=== PATIENT | female | born 1990 | race African-American/Black ===

== ENCOUNTER 2017-01-11 11:02 | Inpatient (IN) | payer MEDICARE, MEDICAID ==
[~2017-01-11] VITALS: Ht 144.8 cm; Wt 277.7 kg
[2017-01-11 13:00] LABS: BASOPHILS 0.5 % (0-2); EOSINOPHILS 7.5 % (0-7); HEMATOCRIT 43.6 % (36.0-48.0); HEMOGLOBIN 13.6 g/dL (12-16); IMMATURE GRANULOCYTES 0.2 % (0-5); LYMPHOCYTES 11.9 % (15-50); MCH 28.5 pg (26.0-34.0); MCHC 31.2 g/dL (31.0-37.0); MCV 91.4 fL (80.0-100.0); MEAN PLATELET VOLUME 10.4 fL (7.4-10.4); MONOCYTES 8.4 % (2-11); NEUTROPHILS 71.5 % (40-80); PLATELET COUNT 205 10x3/uL (130-400); RBC 4.77 10x6/uL (4.00-5.40); RDW 19.1 % (11.5-14.5); WBC 6.4 10x3/uL (4.8-10.8)
[2017-01-11 13:36] LABS: ALBUMIN 3.5 g/dL (3.4-5.0); ALKALINE PHOSPHATASE 152 U/L (46-116); ALT (SGPT) 22 U/L (10-68); BILIRUBIN - TOTAL 1.57 mg/dL (0.2-1.3); CALC OSMOLALITY 277 mosm/kg (275-300); CALCIUM 9.2 mg/dL (8.5-10.1); CARBON DIOXIDE 29.2 mmol/L (21.0-32.0); CHLORIDE - SERUM 104 mmol/L (98-107); CREATININE - SERUM 0.7 mg/dL (0.6-1.3); GLUCOSE 85 mg/dL (74-106); POTASSIUM - SERUM 4.3 mmol/L (3.5-5.1); PROTEIN - SERUM 8.7 g/dL (6.4-8.2); SODIUM 140 mmol/L (136-145); UREA NITROGEN 12 mg/dL (7-18); eGFR NON AFRICAN AMERICAN > 90 mL/min (90-120)
[2017-01-11 13:59] LABS: PRO BNP 779 pg/mL (0-125); THYROID STIMULATING HORMONE 3.03 uIU/mL (0.36-3.74)
[2017-01-11 16:37] LABS: CREATINE KINASE 48 UL (21-215)
[2017-01-11 16:38] LABS: TROPONIN-I < 0.017 ng/mL (0.000-0.060)
--- NOTE | 2017-01-11 18:53 | NUR ---
PT RECIEVED FROM ER. GALLEGOS PLACED AND LASIX 80MG IV TO RIGHT AC. DENIES ANY NEEDS. SR UP WITH CALL LIGHT IN REACH
--- NOTE | 2017-01-11 19:00 | NUR ---
INITIAL ROUNDS MADE. PT SITTING UP IN BED WITH FAMILY IN ROOM. PT REQUESTING AND GIVEN SANDWICH TRAY, PUDDING, JELLO AND JUICE. CALL LIGHT IN REACH. WILL CONT TO MONITOR.
[2017-01-11 19:47] LABS: CREATINE KINASE 41 UL (21-215)
[2017-01-11 19:48] LABS: TROPONIN-I < 0.017 ng/mL (0.000-0.060)
[2017-01-11 21:02] VITALS: BP 142/84; Ht 144.8 cm; Wt 277.7 kg
[2017-01-11 21:21] VITALS: BP 142/84
[2017-01-11] MEDS ORDERED: COREG6.25 MG PO (22:08)
[2017-01-11] MEDS ORDERED: CYMBALTA30 MG PO (22:08)
[2017-01-11] MEDS ORDERED: ZESTRIL40 MG PO (22:08)
[2017-01-11] MEDS ORDERED: BUPROPION HCL100 MG PO (22:08)
[2017-01-11] MEDS ORDERED: NORVASC10 MG PO (22:09)
[2017-01-11] MEDS ORDERED: SYNTHROID50 MCG PO (22:09)
[2017-01-11] MEDS ORDERED: LASIX80 MG PO (22:09)
[2017-01-11] MEDS ORDERED: ALDACTONE100 MG PO (22:10)
[2017-01-12 01:17] LABS: CREATINE KINASE 41 UL (21-215); TROPONIN-I < 0.017 ng/mL (0.000-0.060)
[2017-01-12 01:26] VITALS: BP 137/93
--- NOTE | 2017-01-12 03:59 | NUR ---
CREW CALLER AT BEDSIDE FOR VS. NEEDS ADDRESSED AT THIS TIME. CALL LIGHT IN REACH. WILL CONT TO MONITOR.
[2017-01-12 04:59] VITALS: BP 139/82
[2017-01-12 06:14] LABS: BASOPHILS 0.4 % (0-2); EOSINOPHILS 8.7 % (0-7); HEMATOCRIT 42.2 % (36.0-48.0); HEMOGLOBIN 12.9 g/dL (12-16); IMMATURE GRANULOCYTES 0.2 % (0-5); LYMPHOCYTES 15.1 % (15-50); MCH 28.2 pg (26.0-34.0); MCHC 30.6 g/dL (31.0-37.0); MCV 92.1 fL (80.0-100.0); MEAN PLATELET VOLUME 10.5 fL (7.4-10.4); MONOCYTES 9.5 % (2-11); NEUTROPHILS 66.1 % (40-80); PLATELET COUNT 216 10x3/uL (130-400); RBC 4.58 10x6/uL (4.00-5.40); RDW 18.9 % (11.5-14.5); WBC 5.5 10x3/uL (4.8-10.8)
[2017-01-12 06:35] LABS: ALBUMIN 3.3 g/dL (3.4-5.0); ALKALINE PHOSPHATASE 148 U/L (46-116); ALT (SGPT) 21 U/L (10-68); BILIRUBIN - TOTAL 1.45 mg/dL (0.2-1.3); CALC OSMOLALITY 276 mosm/kg (275-300); CALCIUM 8.7 mg/dL (8.5-10.1); CARBON DIOXIDE 29.9 mmol/L (21.0-32.0); CHLORIDE - SERUM 102 mmol/L (98-107); CREATININE - SERUM 0.8 mg/dL (0.6-1.3); GLUCOSE 95 mg/dL (74-106); POTASSIUM - SERUM 3.8 mmol/L (3.5-5.1); PROTEIN - SERUM 8.3 g/dL (6.4-8.2); SODIUM 139 mmol/L (136-145); UREA NITROGEN 11 mg/dL (7-18); eGFR NON AFRICAN AMERICAN > 90 mL/min (90-120)
[2017-01-12 08:00] VITALS: BP 156/93
--- NOTE | 2017-01-12 09:14 | NUR ---
TELEMETRY CAF. HR 96. URINE SPECIMEN COLLECTED AND TAKEN TO LAB FOR UA. WILL MONITOR.
[2017-01-12 09:15] LABS: APPEARANCE HAZY (CLEAR); BACTERIA FEW /hpf (NONE SEEN); BILIRUBIN NEGATIVE (NEGATIVE); COLOR YELLOW (YELLOW); EPITHELIAL CELLS 0-5 /hpf (0-5); GLUCOSE NEGATIVE (NEGATIVE); KETONE NEGATIVE (NEGATIVE); LEUKOCYTE ESTERASE TRACE (NEGATIVE); MUCUS <1+ /lpf (NONE SEEN); NITRITE NEGATIVE (NEGATIVE); PROTEIN TRACE mg/dL (NEGATIVE); SPECIFIC GRAVITY 1.015 (1.005-1.020); UROBILINOGEN NORMAL (NORMAL); WHITE CELLS - URINE 0-5 /hpf (0-5)
[2017-01-12 12:03] VITALS: BP 119/77
--- NOTE | 2017-01-12 14:45 | NUR ---
OT NOTE: ATTEMPTED EVAL BUT PT REPORTED SEVERE CHEST PAIN AND WAS UNABLE TO PARTICIPATE. WILL ATTEMPT AGAIN TOMORROW
[2017-01-12 16:00] VITALS: BP 142/90
--- NOTE | 2017-01-12 16:26 | NUR ---
COMPLETE BED BATH GIVEN. REFUSES PT TWICE TODAY. STATES SHE WILL WALK TOMARROW AM. WILL CONT. TO MONITR NEEDS.
--- NOTE | 2017-01-12 16:46 | NUR ---
Patient Name: JOSE MANCUSO Admission Status: ER Accout number: [id number] Admission Date: 01-11-2017 : 1990 Admission Diagnosis: Attending: MITCH Current LOS: 1 Anticipated DC Date: 01-14-2017 Planned Disposition: Home with Home Health Primary Insurance: MEDICARE A & B PLANNED EXTERNAL PROVIDER: [facility] Discharge Planning Comments: * Is the patient Alert and Oriented? Yes 0 * How many steps to enter\\exit or inside your home? NONE 0 * PCP DR. HATCH IN [place] 0 * Pharmacy [facility] IN [place] 0 * Preadmission Environment Home with Family 0 * ADLs Partial Dependent 0 * Partial ADLs (Assistance needed) Dressing Toileting 0 * Equipment CPAP Nebulizer Oxygen Shower Chair Walker Wheelchair 0 * Other Equipment HOME OXYGEN ONLY MEDICAL EQUIPMENT PROVIDER - [place] [facility] PAT[facility] 0 * List name and contact numbers for known caregivers / representatives who currently or will assist patient after discharge: WESLY CASTRO, COUSIN, SHRUTHI - CAREGIVER 0 * Community resources currently utilized [employer] Private Duty Care 0 * Please name any agencies selected above. [employer] DELIVERY 43 HOURS PAID CAREGIVER EVERY 2 WEEKS - CAREGIVER IF LIVE IN FRIEND 0 * Additional services required to return to the preadmission environment? No * Can the patient safely return to the preadmission environment? Yes 0 * Has this patient been hospitalized within the prior 30 days at any hospital? No 0 CM RECIEVED ORDER TO EVALUATE FOR HOME ASSISTANCE NEEDS. CM MET WITH PT AND CAREGIVER, SHRUTHI, IN ROOM TO DISCUSS DISCHARGE PLANNING AND NEEDS. PT REPORTS LIVING AT HOME INDEPENDENTLY WITH HER 16 YEAR OLD DAUGHTER. PT HAS WALKER, WHEELCHAIR, NEBULIZER AND OXYGEN AT HOME, PROVIDER IS [place] PAT[place]. PT HAS 43 HOURS OF PERSONAL CARE EVERY TWO WEEKS PROVIDED BY PT'S FRIEND, SHRUTHI, WHO LIVES WITH HER AND ASSISTS PT IN BATHROOM, WITH DRESSING AND COOKS FOR PT. CM DISCUSSED AVAILABILITY OF HOME HEALTH, REHAB SERVICES AND MEDICAL EQUIPMENT. PT HAS HAD HOME HEALTH AND WOULD LIKE [facility] TO GET HER LEGS WORKING AGAIN. HOME HEALTH CHOICE SIGNED. PT REPORTS SHE NEEDS A NEW HOSE FOR HER CPAP; PT REPORTS HER AUNT WILL PICK HER UP FOR DISCHARGE HOME OR SHE MAY JUST TAKE THE AMBULANCE. CM EXPLAINED THAT PT IS ABLE TO TRANSFER OUT OF BED TO A CHAIR AND IS ABLE TO WALK, SO SHE WILL NOT QUALIFY, TO CM'S KNOWLEDGE FOR AMBULANCE TRANSPORT HOME. PT REPORTS THE HOSPITALS USUALLY SEND HER HOME BY AMBULANCE. CM CALLED [facility] [place] [facility], , SPOKE TO JEFF, WHO WILL HAVE BRIAN CONTACT PATIENT TO SEE WHAT CAN BE DONE TO REPAIR THE CPAP MACHINE WHILE PT IS IN THE HOSPITAL. PT PLANS TO DISCHARGE HOME, WANTS [facility] FOR PHYSICAL THERAPY SERVICES TO "GET HER LEGS WORKING AGAIN". CM TO ARRANGE HOME HEALTH WITH PHYSICIAN AGREEMENT AND ORDERS. Rodding Anode Worker: Jose Melendez
[2017-01-12 19:00] VITALS: BP 124/81
--- NOTE | 2017-01-12 19:16 | NUR ---
RESUMED CARE OF PT, LYING IN BED RESPIRATIONS EVEN AND UNLABORED ON 3LPM VIA NC. 88 SR WITH FIRST DEGREE AVB. GALLEGOS TO GRAVITY, CALL LIGHT IN REACH. RIGHT AC SALINE LOCKED. REQUESTS PAIN MEDICATION. SEE NURSE ASSESSMENT.
[2017-01-13] VITALS: BP 126/78
--- NOTE | 2017-01-13 01:02 | NUR ---
LYING IN BED WITH EYES CLOSED, CALL LIGHT IN REACH. WILL CONTINUE TO MONITOR.
--- NOTE | 2017-01-13 03:37 | NUR ---
HORSE GROOMER AT BEDSIDE TO OBTAIN VITALS, WILL CONTINUE WITH PLAN OF CARE.
[2017-01-13 04:00] VITALS: BP 136/78
[2017-01-13 05:48] LABS: BASOPHILS 0.4 % (0-2); EOSINOPHILS 9.1 % (0-7); HEMATOCRIT 42.2 % (36.0-48.0); IMMATURE GRANULOCYTES 0.2 % (0-5); LYMPHOCYTES 16.4 % (15-50); MCH 28.3 pg (26.0-34.0); MCHC 30.8 g/dL (31.0-37.0); MCV 91.7 fL (80.0-100.0); MEAN PLATELET VOLUME 10.7 fL (7.4-10.4); MONOCYTES 8.9 % (2-11); PLATELET COUNT 209 10x3/uL (130-400); RDW 18.9 % (11.5-14.5); WBC 5.5 10x3/uL (4.8-10.8)
[2017-01-13 06:18] LABS: ALBUMIN 3.1 g/dL (3.4-5.0); ALKALINE PHOSPHATASE 139 U/L (46-116); ALT (SGPT) 21 U/L (10-68); CALC OSMOLALITY 274 mosm/kg (275-300); CALCIUM 8.5 mg/dL (8.5-10.1); CARBON DIOXIDE 32.8 mmol/L (21.0-32.0); CHLORIDE - SERUM 100 mmol/L (98-107); CREATININE - SERUM 0.9 mg/dL (0.6-1.3); GLUCOSE 110 mg/dL (74-106); POTASSIUM - SERUM 3.6 mmol/L (3.5-5.1); PROTEIN - SERUM 8.5 g/dL (6.4-8.2); SODIUM 137 mmol/L (136-145); UREA NITROGEN 13 mg/dL (7-18); eGFR NON AFRICAN AMERICAN 80 mL/min (90-120)
--- NOTE | 2017-01-13 06:32 | NUR ---
NO CHANGES FROM PREVIOUS ASSESSMENT, CALL LIGHT IN REACH.
[2017-01-13 08:00] VITALS: BP 135/73
--- NOTE | 2017-01-13 10:36 | NUR ---
UP OOB WITH PT ASSIST.
[2017-01-13 12:00] VITALS: BP 135/78; BP 140/75
--- NOTE | 2017-01-13 15:06 | NUR ---
Patient Name: JOSE MANCUSO Encounter No: [id number] : 1990 Primary Insurance: MEDICARE A & B Anticipated DC Date: 01-14-2017 Planned Disposition: Home with Home Health External Planned Provider: [facility] DCP follow-up note: CM RECEIVED DISCHARGE AND HOME HEALTH ORDER, CALLED [facility], , SPOKE TO STEFFANIE AND PROVIDED REFERRAL INFORMATION, WILL ADMIT ON TUESDAY. CM FAXED REFERRAL TO [facility] AT [phone]. CM SPOKE TO [facility]STOPHER [facility]ANG [facility] PATIENT AT [employer] [facility] WHO HAS PROVIDED PT WITH REPLACEMENT CPAP HOSE. CM MET WITH PT AND CAREGIVER IN ROOM, DISCUSSED DISCHARGE TO HOME HEALTH FOR ADMIT ON TUESDAY, PT IN AGREEMENT WITH HOME HEALTH ADMIT ON TUESDAY. CM EXPLAINED THAT HOME HEALTH WILL CALL AND THEN COME OUT ON TUESDAY FOR ADMISSION. PT REPORTS HER AUNT WILL PICK HER UP OR SHE WILL HAVE TO WORK SOMETHING ELSE OUT. SALES REPRESENTATIVE [employer] NOTIFIED. Jose Melendez, CASE MANAGEMENT
--- NOTE | 2017-01-13 15:11 | NUR ---
PT REQUESTING NARCOTIC PAIN MEDICATION FOR DISCHARGE FOR BACK PAIN. SPOKE WITH MELITA/MADI WHO ADVISED NO NARCOTIC PAIN MEDICATION. MAY USE TYLENOL FOR PAIN AND CONTACT PCP DR. HATCH FOR ADDITIONAL NEEDED PAIN MEDICATION. THIS WAS RELAYED TO PT. PT DISCHARGE INSTRUCTIONS REVIEWED WITH PT. VERBAL AND WRITTEN ACKNOWLEDGEMENT RETURNED.
--- NOTE | 2017-01-13 16:15 | NUR ---
Patient Name: JOSE MANCUSO Encounter No: [id number] : 1990 Primary Insurance: MEDICARE A & B Anticipated DC Date: 01-13-2017 Planned Disposition: Home with Home Health External Planned Provider: [facility] DCP follow-up note: CM RECEIVED REQUEST FROM BEDSIDE NURSE TO SEE PT. CM SPOKE TO PT AND CAREGIVER IN ROOM. PT IS UPSET SHE IS BEING DISCHARGED TODAY AND THOUGHT SHE WOULD STAY UNTIL TOMORROW AND FEELS LIKE SHE NEEDS MORE THAN JUST TYLENOL FOR PAIN AT HOME. PT WOULD LIKE TO SPEAK TO THE DOCTOR AGAIN. PT REPORTS NOT HAVING RIDE HOME NOW AND ASKED CM TO ASSIST IN FINDING PT AND CAREGIVER A RIDE. PT HAS TAKEN [facility] IN THE PAST FOR MEDICAL APPOINTMENTS AND THE AMBULANCE HAS DRIVEN SHE AND HER CAREGIVER HOME AFTER HOSPITAL STAYS. CM NOTIFIED TECHNICIAN CHEMICAL CLEANING NURSE OF PT'S REQUEST TO SEE THE DOCTOR AGAIN PRIOR TO GOING HOME, WAS ADVISED THAT THE DOCTOR WOULD NOT BE COMING BACK AGAIN TO SEE PT. CM NOTIFIED PT. CM CALLED [facility], , LEFT MESSAGE FOR SHOWER ENCLOSURE INSTALLER TO CALL CM. CM RECEIVED RETURN CALL FROM [employer]SP[employer] WHO REPORTS HER LIFT ON THE VAN CANNOT PLUMBING DESIGNER PT AND HER ELECTRIC WHEELCHAIR AND THEY CANNOT HAVE A STANDING PERSON ON THE LIFT. CM SPOKE TO PT WHO REPORTS INABILITY TO CLIMB ANY STAIRS. CM SPOKE TO [employer] WHO REPORTS STANDARD VAN SEATS WILL NOT ACCOMODATE PT EVEN IF SHE WAS ABLE TO CLIMB THE STEPS. CM CALLED [facility], SPOKE TO JT AND ARRANGED AMBULANCE PLUMBING DESIGNER FOR PT (AMBULANCE CREW WILL DECIDE IF THEY WILL TRANSPORT THE CAREGIVER.) CM COMPLETED PCS WITH FACE SHEET AND H&P FOR AMBULANCE CREW, PROVIDED TO BEDSIDE NURSE, NOTIFIED PT, CAREGIVER AND BEDSIDE NURSE THAT AMBULANCE WILL PLUMBING DESIGNER PT IN ABOUT ONE HOUR, DEPENDING ON DEVELOPING EMERGENCIES. PT AND CAREGIVER IN AGREEMENT WITH DISCHARGE PLAN OF HOME HEALTH FOR TUESDAY ADMISSION AND AMBULANCE HOME TODAY. Jose Melendez, CASE MANAGEMENT
--- NOTE | 2017-01-13 18:28 | NUR ---
IV AND TELEMETRY DCD. DC PLANS GIVEN. NOTE LEFT FOR CM TO CALL IN AM FOR REQESTING HH NURSE ALONG WITH THE PT. LEAVING HOSP BY AMBULANCE.
--- NOTE | 2017-01-14 14:43 | NUR ---
Patient Name: JOSE MANCUSO Admission Status: ER Accout number: [id number] Admission Date: 01-11-2017 : 1990 Admission Diagnosis:HEART FAILURE, UNSPECIFIED Attending: MITCH Current LOS: 2 Anticipated DC Date: 01-13-2017 Planned Disposition: Home Primary Insurance: MEDICARE A & B Discharge Planning Comments: CM RECEIVED CALL FROM STEFFANIE OF [employer] [facility], SHE HAS CONTACTED PT'S PRIMARY DOCTOR, DR. HATCH, WHO REPORTED THAT HE WILL NOT PROVIDE HOME HEALTH ORDERS WITHOUT FIRST SEEING PT SHE HAS NOT BEEN TO CLINIC IN OVER ONE YEAR. STEFFANIE HAS NOTIFIED PT AT HOME VIA PHONE; PT ADVISED STEFFANIE THAT SHE (PT) WILL SCHEDULE APPOINTMENT FOR FOLLOW UP WITH DR. HATCH AND DISCUSS NEEDED SERVICES WITH HIM. [employer] Software Development Engineer: Jose Melendez
== END 2017-01-13 18:30 | disposition home health service (06) | DRG 291 ==
LOC: D.ER 11:02 → D.M2 16:43
PROVIDERS: Emergency Medicine; ADMIT Family Medicine
DX: I50.32 Chronic diastolic (congestive) heart failure (principal); R53.2 Functional quadriplegia; Z68.45 Body mass index [BMI] 70 or greater, adult; J44.9 Chronic obstructive pulmonary disease, unspecified; I27.2 Other secondary pulmonary hypertension; E66.01 Morbid (severe) obesity due to excess calories; Z99.81 Dependence on supplemental oxygen

== ENCOUNTER → 2019-08-10 11:40 | Outpatient (CLI) | payer MEDICARE ==
[2017-01-11 21:02] VITALS: BMI 104.0
[~2019-08-10 11:40] MED LIST: ALDACTONE100 MG PO; BUPROPION HCL100 MG PO; COREG6.25 MG PO; CYMBALTA30 MG PO; LASIX80 MG PO; NORVASC10 MG PO; SYNTHROID50 MCG PO; ZESTRIL40 MG PO
[2019-08-10 12:23] LABS: BASOPHILS 0.2 % (0-2); EOSINOPHILS 0.2 % (0-7); HEMATOCRIT 28.7 % (36.0-48.0); HEMOGLOBIN 8.5 g/dL (12-16); IMMATURE GRANULOCYTES 0.3 % (0-5); LYMPHOCYTES 12.7 % (15-50); MCH 25.4 pg (26.0-34.0); MCHC 29.6 g/dL (31.0-37.0); MCV 85.7 fL (80.0-100.0); MEAN PLATELET VOLUME 10.3 fL (7.4-10.4); MONOCYTES 9.3 % (2-11); NEUTROPHILS 77.3 % (40-80); RBC 3.35 10x6/uL (4.00-5.40); RDW 21.6 % (11.5-14.5); WBC 6.6 10x3/uL (4.8-10.8)
[2019-08-10 12:30] LABS: % SATURATION 11 % (15-55); IRON 37 ug/dl (35-150); TOTAL IRON BIND CAPACITY 323 ug/dl (260-445); UNSAT IRON BIND CAPACITY 286 ug/dl (150-375)
[2019-08-10 12:33] LABS: PLATELET COUNT 317 10x3/uL (130-400)
[2019-08-10 12:35] LABS: APTT 45.4 SECONDS (22.8-39.4); INR 1.65 (0.85-1.17); PROTIME 18.9 SECONDS (11.6-15.0)
[2019-08-10 12:52] LABS: ALBUMIN 2.7 g/dL (3.4-5.0); ALKALINE PHOSPHATASE 152 U/L (46-116); ALT (SGPT) 23 U/L (10-68); BILIRUBIN - TOTAL 0.58 mg/dL (0.2-1.3); CALC OSMOLALITY 284 mosm/kg (275-300); CHLORIDE - SERUM 101 mmol/L (98-107); CREATININE - SERUM 1.3 mg/dL (0.6-1.3); GLUCOSE 107 mg/dL (74-106); POTASSIUM - SERUM 4.4 mmol/L (3.5-5.1); PROTEIN - SERUM 8.4 g/dL (6.4-8.2); SODIUM 139 mmol/L (136-145); UREA NITROGEN 31 mg/dL (7-18); eGFR NON AFRICAN AMERICAN 51 mL/min (90-120)
== END | disposition home or self-care (01) ==
LOC: D.LABREF 11:40
PROVIDERS: ATTEND Family Medicine
DX: I50.9 Heart failure, unspecified (principal)